=== PATIENT | male | born 1945 | race Caucasian/White ===

== ENCOUNTER 2021-02-08 18:01 | Inpatient (IN) | payer OTHER ==
[~2021-02-08] VITALS: Ht 188 cm; Wt 93.0 kg
[2021-02-08 18:08] VITALS: BP 170/72
[2021-02-08 19:23] LABS: ABSOLUTE NEUTROPHILS 6.4 thou/uL (1.4-8.2); BASOPHILS 0.6 % (0.0-2.0); EOSINOPHILS 1.2 % (0.0-3.0); HEMATOCRIT 42.9 % (42.0-52.0); HEMOGLOBIN 14.2 gm/dL (14.0-18.0); LYMPHOCYTES 10.7 % (24.0-44.0); MCH 31.8 pg (26.0-34.0); MCHC 33.2 g/dL (28.0-37.0); MCV 95.8 fL (80.0-100.0); MONOCYTES 8.2 % (1.0-8.0); PLATELET COUNT 216 thou/uL (150-400); POLYS 79.3 % (36.0-66.0); RBC 4.48 mil/uL (4.50-6.00); RDW 13.1 % (10.5-14.5)
[2021-02-08 19:23] LABS: URINE BILIRUBIN NEGATIVE (Negative); URINE BLOOD NEGATIVE (Negative); URINE CLARITY CLEAR; URINE COLOR YELLOW; URINE GLUCOSE-RANDOM* NEGATIVE (Negative); URINE KETONES NEGATIVE (Negative); URINE LEUKOCYTES-REFLEX NEGATIVE (Negative); URINE NITRITE-REFLEX NEGATIVE (Negative); URINE PROTEIN (DIPSTICK) NEGATIVE (Negative); URINE UROBILINOGEN 0.2 E.U./dl (0.2-1.0)
[2021-02-08 19:32] LABS: CALCIUM 8.9 mg/dL (8.5-10.1)
[2021-02-08 19:45] LABS: TOTAL BILIRUBIN 1.3 mg/dL (0.2-1.0); TOTAL PROTEIN 7.6 g/dL (6.4-8.2)
[2021-02-08 21:28] VITALS: BP 137/65
[2021-02-08 22:29] VITALS: BP 128/73
--- NOTE | 2021-02-08 22:58 | NUR ---
PT ADMITTED TO THE UNIT AT APPROXIMATELY 2210. PT IS A/O X4,RA,SBA TO THE BR. RATES RLQ ABDOMINAL PAIN AT A 4 AND STATES ED JUST GAVE HIM PAIN MEDICATION AND HE'S FEELING MUCH BETTER. TEMP AND HR ELEVATED. ADMISSION IS COMPLETED, FALL PRECAUTIONS IN PLACE, CALL LIGHT IS WITHIN REACH. PT WILL BE NPO AFTER MIDNIGHT AWAITING PROCEDURE TOMORROW.
[2021-02-09 08:00] VITALS: BP 91/47
--- NOTE | 2021-02-09 12:52 | NUR ---
cm completed the initial assessment to discuss d/c planning. pt aaox4. pt lives at home with . pt has no dmes. pt has no hx with snf or hh. pt is active and independent with cares. cm to cont to follow.
[2021-02-09 13:23] VITALS: BP 94/50
--- NOTE | 2021-02-09 16:35 | NUR ---
ASSUMED PT CARE THIS AM. PT IS ALERT & ORIENTED X4. PT HAD A LAP VINEET TODAY AND HAS 3 LAP SITES. REMOVED PT IV DUE TO IV INFILTRATION. PT USES URINAL AND UP WITH ASSIST X1. PT AT THE BEDSIDE. PT DENIES PAIN TODAY. PT ON THE BED SLEEPING, BED ON THE LOWEST POSITION, SIDE RAILS UP, CALL LIGHT WITHIN REACH. WILL CONTINUE TO MONITOR PT.
[2021-02-09 17:19] VITALS: BP 114/64
[2021-02-09 19:40] VITALS: BP 111/59
--- NOTE | 2021-02-10 07:24 | NUR ---
VSS-AFEBRILE. LUNGS CLEAR-ROOM AIR. PAIN WELL CONTROLLED. OOB AD EDEL-STEADY ON FEET. LAP SITES INTACT, NO DRAINAGE. CALLS APPROPRIATELY FOR ANY NEEDED ASSISTANCE.
[2021-02-10 08:27] VITALS: BP 121/62
[2021-02-10] MEDS ORDERED: NOHOMEMEDICATIONS ×2 (08:58→09:01)
--- NOTE | 2021-02-10 09:26 | NUR ---
Received awake on bed. Due medications given as prescribed, able to swallow med w/o difficulty. On room air. Vital signs stable. On MS, not on telemetry; no complains and signs of chest pain, crushing sensation and heaviness. On clear liquid diet- tolerating well; no nausea, no vomiting and no abdominal pain noted; no standing orders to advance- a/w physician's rounds. Continent of bowel and bladder, able to go to the toilet and do ADLs independently. With 3 abdominal lap sites- s/p lap appy 02/09- [address]; no signs of bleeding and drainage noted. No complains of pain made during assessment. A/w physician's rounds re: discharge. Upon reviewing pt's records- no med rec done- pt not taking any maintenance medsm, preferred pharmacy entered. To continue monitoring patient.
--- NOTE | 2021-02-10 11:13 | O ---
[facility] [place] [address] OPERATIVE REPORT Name: JOSÉ LUGO Room #: 457-P ADM IN M.R.#: [id number] Admission: 02/08/21 Attend Phys: Cory Kaur MD Discharge: Date of : 43 Report #: [id number] THIS REPORT FOR: cc: Otis Tovar MD, Christopher B. MD Chu,Cory Gallardo MD ~ DATE OF SERVICE: 02/09/2021 PREOPERATIVE DIAGNOSES: 1. Acute appendicitis. 2. Umbilical hernia. PROCEDURES PERFORMED: 1. Laparoscopic appendectomy. 2. Repair of umbilical hernia. ANESTHESIA: General. SURGEON: Cory Kaur MD COMPLICATIONS: None. ESTIMATED BLOOD LOSS: 5 mL. FINDINGS: The appendix is inflamed with surrounding exudative inflammation. No evidence of rupture. The inflammation is fairly significant in the right lower quadrant. The right upper quadrant is normal. Finding also of a small left direct inguinal hernia. PROCEDURE NOTE: With the patient under general anesthesia, he did receive IV antibiotics per scheduled doses, not too long before surgery. Abdomen was prepped and draped in sterile fashion. A 0.25% Marcaine was used to anesthetize the skin. A curvilinear incision was made infraumbilically. The patient had a thin hernia sac that was entered. The hernia sac was free from the overlying skin of the umbilicus. The hernia sac was dissected free and removed at the fascial level. There was some omental fat that was protruding through. The fascia edges identified, cleaned off. 0 Vicryl suture placed on the fascia for retraction. With the sutures lifting the fascia edges, ____ 12 mm trocar was placed under visualization into the peritoneal cavity with a blunt tip. CO2 was administered through this without difficulty. Evaluation laparoscopically with the aid of a 5 mm trocar placed about 2-3 inches above the umbilicus. The patient did have significant inflammatory reaction in the right lower quadrant. CT had suggested some right upper quadrant inflammation. This area actually looked normal. There was an area where there was a little extra omental fat, I think that was what was seen. Gallbladder and liver looked normal. There was [facility] [address] [place] [address] OPERATIVE REPORT Name: JOSÉ LUGO Room #: 457-P ADM IN M.R.#: [id number] Admission: 02/08/21 Attend Phys: Cory Kaur MD Discharge: Date of : 43 Report #: [id number] some adhesion of the right colon to the wall. Likely chronic. These were left alone. Laparoscopic evaluation showed a left direct inguinal hernia. This was pretty small, probably not clinical. The right lower quadrant contained several small bowel loops and these were adhesed to each other through inflammation. There was some exudate that was visualized on the surface. The bowel was freed up. The sigmoid colon was adjacent to this area. The TI actually entered a little bit more higher than where the appendix was found. There was a deeper and there was quite a bit of exudate on the appendix. Appendix was inflamed in the mid portion. The mesoappendix at the tip was grasped without difficulties. The rest of the tissue was freed from the appendix. The mesoappendix was isolated. There was some lateral peritoneal reflection present. Mesoappendix and the lateral peritoneal reflection was dissected free. The mesoappendix was divided to the base. The cecum was adherent to the wall and tethered. Care was taken not to violate the cecum. The appendix was isolated at the base. At this point, 5 mm scope was placed through the inferior 5 mm trocar. The inferior 5 mm trocar was placed near the beginning of the case about an inch and a half, 2 inches below the umbilicus, was placed under visualization. No harm to underlying tissue. The MIGUEL was then placed through the 12 mm trocar at the umbilicus. This was placed across the base of the appendix. This was closed. After about 10 seconds, the MIGUEL was deployed. MIGUEL was opened up. GI was then removed. A specimen bag EndoCatch was placed. The appendix was placed in EndoCatch and removed through the umbilical hernia fascia defect, came out easily. Small loose torey were removed. The staple lines well formed. Cecum was not harm during this procedure. Irrigation was performed, irrigation was aspirated out. No bleeding was identified. CO2 and trocars were removed. The patient was placed in reverse Trendelenburg position, right side tilted up during the procedure and he was flattened out. The fascia defect was isolated and been cleaned off already. The fascia was closed with a suture. A 0 PDS [id number] fashion was placed x 2 closing the defect well. Skin was irrigated, closed with 5-0 PDS. Steri-Strip, Band-Aids applied. The patient tolerated the procedure well and was taken to recovery room. <ELECTRONICALLY SIGNED> By: Cory Kaur MD 02/10/21 1113 [id number] 34 Cory Kaur MD /nt
[2021-02-10] MEDS ORDERED: TYLENOL325 MG PO (11:29)
[2021-02-10] MEDS ORDERED: NORCO5 PO (11:29)
[2021-02-10 11:39] VITALS: BP 121/62
== END 2021-02-10 12:32 | disposition home or self-care (01) | DRG 343 ==
LOC: ER 18:01 → 4W 21:15 → EROBS 21:15 → 4W 21:39
PROVIDERS: Emergency Medicine; ADMIT Surgery; ATTEND Surgery
PROC: 0DTJ4ZZ Resection of Appendix, Percutaneous Endoscopic Approach (ICD-10-PCS; principal; 2021-02-09)
PROC: 0WQF4ZZ Repair Abdominal Wall, Percutaneous Endoscopic Approach (ICD-10-PCS; principal; 2021-02-09)
DX: K35.80 Unspecified acute appendicitis (principal); K42.9 Umbilical hernia without obstruction or gangrene; Z20.822 Contact with and (suspected) exposure to COVID-19; Z87.442 Personal history of urinary calculi; Z79.899 Other long term (current) drug therapy
CPT/HCPCS: 10047; 50010; 50101; 50243; 50246; 50411; 50455; 50555; 50558; 51489; 52265; 53307; 53310; 53312; 53335; 56525; 56526; 58574